=== PATIENT | female | born 1995 | race American Indian/Alaskan Native ===

== ENCOUNTER 2019-10-15 17:50 | Inpatient (IN) | payer MEDICAID ==
[~2019-10-15 17:50] MED LIST: AMPICILLIN/NS 2 GM/100 ML 2 GM/100 ML BAG IV ONE; LIDOCAINE (2%) 20 MG/1 ML VIAL 20 ML MDV INFILTRATI ONE; TERBUTALINE 1 MG/1 ML INJ SUB-Q PRN; ePHEDrine SULFATE 50 MG/1 ML INJ IV PRN; fentaNYL 100 MCG/2 ML INJ IV PRN
--- NOTE | 2019-10-15 17:54 | History and Physical Report ---
History of Present Illness Date of examination: 10/15/19 Date of admission: 10/15/2019 Chief complaint: Contractions History of present illness: 23 year old presents with complaint of contractions. Patient denies LOF or VB. Pt. reports active movement. Patient has received care at [facility]. records are not available. 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 labs are as follows: O negative, antibody sceen positive (weak anti-D), rubella immune, varicella nonimmune, hepatitis B surface antigen negative, RPR nonreactive, HIV negative, 1 hour sugar test 105, panorama low risk, horizon negative, hemoglobin electrophoresis negative, gonorrhea negative, chlamydia negative, GBS positive, pap negative. 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 denies: smoking, alcohol abuse, prescription drug abuse, IV drug use - Obstetrical History Expected Date of Delivery: 10/18/19 Actual Gestation: 39 Week(s) 4 Day(s) : 3 Para: 1 Hx # Term Pregnancies: 1 Number of Pregnancies: 0 Spontaneous Abortions: 0 Induced : 1 Number of Living Children: 1 Medications and Allergies Allergies Allergy/AdvReac Type Severity Reaction Status Date / Time No Known Allergies Allergy Unverified 10/15/19 16:39 Home Medications Medication Instructions Recorded Confirmed Last Taken Type Valacyclovir HCl [Valacyclovir] 500 mg PO DAILY 10/15/19 10/15/19 10/14/19 18:00 History Active Meds: Active Medications Ephedrine Sulfate (Ephedrine Sulfate) 10 mg IV Q2M PRN PRN Reason: Hypotension Fentanyl (Sublimaze) 100 mcg IV Q2H PRN PRN Reason: Pain,Severe (7-10) LABOR PAIN Oxytocin/Sodium Chloride (Pitocin/Ns 20 Unit/1000ml Drip) 20 units in 1,000 mls @ 125 mls/hr IV DIRECT EMMANUEL Lactated Ringer's (Lactated Ringers) 1,000 mls @ 125 mls/hr IV DIRECT EMMANUEL Ampicillin Sodium (Ampicillin/Ns 2 Gm/100 Ml) 2 gm in 100 mls @ 100 mls/hr IV ONCE ONE; Protocol Stop: 10/15/19 18:49 Ampicillin Sodium (Ampicillin/Ns 1 Gm/50 Ml) 1 gm in 50 mls @ 100 mls/hr IV Q4HR [facility]; Protocol Lidocaine (Xylocaine 2%) 20 ml INFILTRATI ONCE ONE Stop: 10/15/19 17:51 Terbutaline Sulfate (Brethine) 0.25 mg SUB-Q ONCE PRN PRN Reason: Hyperstimulation/Hypertonicity Review of Systems All systems: negative (contractions) - Vital Signs Vital signs: Vital Signs Pulse BP 88 107/64 10/15/19 16:15 10/15/19 16:15 Temp Pulse Resp BP Pulse Ox 98.3 F 104 H 15 124/69 99 10/15/19 16:18 10/15/19 17:51 10/15/19 16:18 10/15/19 17:31 10/15/19 17:51 - Physical Exam Abdomen: Positive: normal appearance, soft. Negative: distention, tenderness, guarding, rigidity Genitourinary (Female): Positive: normal external genitalia, normal perenium. Negative: perineal/vulvar lesions (no lesions noted on careful exam with bright light upon admission) Vagina: Positive: normal moisture Uterus: Positive: enlarged. Negative: tender Anus/Rectum: Positive: normal perianal skin Extremities: Positive: normal, edema (mild pedal edema bilaterally). Negative: tenderness - Obstetrical FHR: category 1 Uterine Contraction Monitor Mode: External Cervical Dilatation: 4 Cervical Effacement Percentage: 60 station: -2 Uterine Contraction Pattern: Irregular Uterine Contraction Intensity: Moderate Results Result Diagrams: 10/15/19 17:00 All other labs normal. Assessment and Plan A: at 39 weeks, 4 days Labor. GBS positive. P: Admit. EFM. GBS prophylaxis. Anticipate vaginal .
[2019-10-15] MEDS ORDERED: OXYTOCIN 20 UNIT/1000ML DRIP 20 UNITS/1,000 ML BAG IV SCH (18:00)
[2019-10-15] MEDS: LACTATED RINGERS 1,000 ML IV SCH (18:34)
[2019-10-15 19:03] LABS: Hematocrit 31.2 % (30.3-42.9); Hemoglobin 10.2 gm/dl (10.1-14.3); Mean Corpuscular HGB Conc 33 % (30-34); Mean Corpuscular Volume 91 fl (79-97); Platelet Count 184 K/mm3 (140-440); Red Blood Count 3.42 M/mm3 (3.65-5.03); Red Cell Distribution Width 14.6 % (13.2-15.2)
[2019-10-15] MEDS: valACYclovir 500 MG TAB PO SCH (19:26)
[2019-10-15] MEDS ORDERED: OXYTOCIN DRIP 30 UNITS/500 ML BAG IV SCH (22:00)
[2019-10-16] MEDS: LACTATED RINGERS 1,000 ML IV SCH ×3 (00:43→08:36)
[2019-10-16] MEDS ORDERED: NALOXONE 2 MG/2 ML INJ IV PRN (01:39)
--- NOTE | 2019-10-16 01:39 | Anesthesia Consultation ---
Anesthesia Consult and Med Hx Date of service: 10/16/19 - Airway Anesthetic Teeth Evaluation: Good ROM Head & Neck: Adequate Mental/Hyoid Distance: Adequate Mallampati Class: Class II Intubation Access Assessment: Probably Good - Pulmonary Exam CTA: Yes - Cardiac Exam Cardiac Exam: RRR - Pre-Operative Health Status ASA Pre-Surgery Classification: ASA2 Proposed Anesthetic Plan: Epidural - Pulmonary Hx Asthma: No - Cardiovascular System Hx Hypertension: No - Central Nervous System Hx Seizures: No Hx Psychiatric Problems: No - Endocrine Hx Renal Disease: No Hx Hypothyroidism: No Hx Hyperthyroidism: No - Hematic Hx Anemia: No Hx Sickle Cell Disease: No - Other Systems Hx Alcohol Use: No
[2019-10-16] MEDS ORDERED: DEXMEDETOMIDINE 200 MCG/2 ML VIAL IV ONE (01:42)
[2019-10-16] MEDS ORDERED: fentaNYL-BUPIV 2 MCG/ML-0.125% 200 MCG/100 ML BAG EPIDURAL SCH (02:00)
[2019-10-16] MEDS: ePHEDrine SULFATE 50 MG/1 ML INJ IV PRN ×2 (03:13→03:21)
[2019-10-16] MEDS: AMPICILLIN/NS 1 GM/50 ML 1 GM/50 ML BAG IV SCH ×2 (04:15→08:28)
[2019-10-16] MEDS ORDERED: ONDANSETRON 4 MG/2 ML INJ IV PRN (08:00)
[2019-10-16] MEDS: valACYclovir 500 MG TAB PO SCH (10:00)
[2019-10-16] MEDS ORDERED: WITCH HAZEL/ GLYCERIN PAD TP PRN (16:26)
[2019-10-16] MEDS ORDERED: LANOLIN/ZINC/DIMETHICONE (LANSINOH) 7 GM TP PRN (16:26)
--- NOTE | 2019-10-16 16:34 | Procedure Note ---
OB Delivery Note - Delivery Date of Delivery: 10/16/19 Surgeon: HERBIE GARCIA Estimated blood loss: 300cc - Vaginal Delivery presentation: vertex Delivery position: OA Intrapartum events: none Delivery augmentation: rupture of membranes, pitocin Delivery monitor: external FHT, external uterine Route of delivery: Delivery placenta: spontaneous Delivery cord: 3 umbilical vessels Episiotomy: none Delivery laceration: none Anesthesia: epidural Delivery comments: Spontaneous vaginal delivery at 13:59 of liveborn male infant weighing 3.124 kg with apgars of 7/9. Epidural anesthesia. Nuchal cord and body cord. Baby bulb suctioned and placed skin to skin with mom, dried and stimulated. Spontaneous cry and respirations. 3 vessel cord double clamped and cut. Spontaneous delivery of intact placenta and membranes. EBL 300 cc. Vaginal sweep negative. First degree skid zac on perineum, not bleeding and not sutured. Sponge count correct. Mother and baby stable.
[2019-10-16] MEDS: HYDROcodone/ACETAMINOPHEN 5-325 MG TAB PO PRN (19:35)
--- NOTE | 2019-10-16 20:53 | Post Anesthesia Evaluation ---
- Post Anesthesia Evaluation Patient Participated: Yes Airway Patent: Yes Stable Respiratory Function: Yes Nausea/Vomiting: No Temp > 96.8F: Yes Pain Manageable: Yes Adequeate Hydration: Yes Anesthesia Complications: No Block Receding Appropriately: Yes
[2019-10-16] MEDS: FERROUS SULFATE 325 MG TAB PO SCH (22:13)
[2019-10-16] MEDS: IBUPROFEN 600 MG TAB PO SCH (23:00)
[2019-10-17] MEDS: IBUPROFEN 600 MG TAB PO SCH ×4 (00:27→18:05)
[2019-10-17 07:26] LABS: Hematocrit 28.2 % (30.3-42.9); Hemoglobin 9.3 gm/dl (10.1-14.3)
[2019-10-17] MEDS: FERROUS SULFATE 325 MG TAB PO SCH ×2 (10:00→22:31)
[2019-10-17] MEDS: HYDROcodone/ACETAMINOPHEN 5-325 MG TAB PO PRN ×2 (10:00→20:42)
--- NOTE | 2019-10-17 13:41 | Progress Note ---
Assessment and Plan A: day 1 S/P . Anemia. P: Supplement with iron. Plan discharge home tomorrow when baby is able to go. Subjective - Subjective Date of service: 10/17/19 Principal diagnosis: day 1 S/P Interval history: day 1 S/P . Doing well. Baby is not getting to go until tomorrow so will plan to discharge patient tomorrow morning. Patient reports: appetite normal, voiding normally, pain well controlled, flatus, ambulating normally, no dizzy ambulation, no nauseated [place]: doing well Objective - Vital Signs Latest vital signs: Vital Signs Temp Pulse Resp BP BP Pulse Ox 10/17/19 09:10 98 F 89 20 102/63 10/17/19 05:44 18 10/17/19 04:00 98.6 F 74 102/63 10/17/19 00:27 18 10/17/19 00:00 98.6 F 69 18 107/78 10/16/19 19:35 18 10/16/19 19:30 98.7 F 66 18 106/72 10/16/19 17:15 99.2 F 66 20 110/70 10/16/19 16:01 79 100 10/16/19 15:56 93 H 100 10/16/19 15:55 90 110/74 10/16/19 15:51 80 100 10/16/19 15:46 94 H 100 10/16/19 15:41 93 H 100 10/16/19 15:40 89 120/67 10/16/19 15:36 89 100 10/16/19 15:31 95 H 100 10/16/19 15:26 96 H 100 10/16/19 15:25 97 H 122/67 10/16/19 15:21 101 H 100 10/16/19 15:16 88 100 10/16/19 15:11 87 122/63 100 10/16/19 15:06 90 100 10/16/19 15:01 85 100 10/16/19 14:56 93 H 106/65 100 10/16/19 14:51 89 100 10/16/19 14:46 85 100 10/16/19 14:41 83 100 10/16/19 14:40 86 112/64 10/16/19 14:36 91 H 100 10/16/19 14:31 91 H 100 10/16/19 14:26 97 H 114/62 100 10/16/19 14:21 93 H 100 10/16/19 14:16 90 100 10/16/19 14:11 89 119/70 100 10/16/19 14:06 95 H 100 10/16/19 14:01 83 100 10/16/19 13:57 93 H 131/62 10/16/19 13:56 84 100 10/16/19 13:51 99 H 100 10/16/19 13:46 105 H 100 10/16/19 13:42 84 121/53 10/16/19 13:40 87 100 Intake and Output 10/16/19 10/17/19 10/17/19 23:59 07:59 15:59 Intake Total 300 200 120 Output Total 550 Balance -250 200 120 Intake: Oral 200 120 Intake, Free Water 300 Output: Urine 550 Void 550 Other: Total, Intake Amount 200 120 Total, Output Amount 550 # Voids Void 1 1 1 - Exam Cardiovascular: Present: Regular rate, Normal S1, Normal S2, No murmurs Lungs: Present: Clear to auscultation Abdomen: Present: normal appearance, soft. Absent: distention, tenderness, guarding, rigidity Uterus: Present: normal, firm, fundal height below umbilicus. Absent: bogginess, tenderness Extremities: Present: normal. Absent: tenderness, edema - Labs Labs: Abnormal lab results 10/17/19 Range/Units 06:10 Hgb 9.3 L (10.1-14.3) gm/dl Hct 28.2 L (30.3-42.9) %
[2019-10-18] MEDS: HYDROcodone/ACETAMINOPHEN 5-325 MG TAB PO PRN ×2 (03:38→10:11)
[2019-10-18] MEDS: IBUPROFEN 600 MG TAB PO SCH ×2 (05:40→11:36)
[2019-10-18] MEDS ORDERED: DIPHtheria,PERTUSSIS(ACELL),TETANUS VACCINE/PF 0.5 ML VIAL IM ONE (06:00)
[2019-10-18] MEDS: FERROUS SULFATE 325 MG TAB PO SCH (10:11)
--- NOTE | 2019-10-18 11:16 | Progress Note ---
Assessment and Plan - Patient Problems (1) Status post normal vaginal delivery Current Visit: Yes Status: Acute Plan to address problem: PPD 2 - stable Continue routine orders Discharge to home later today Follow-up at [facility] as needed or in 6 weeks for exam (2) Single live Current Visit: Yes Status: Acute (3) Anemia due to blood loss, acute Current Visit: Yes Status: Acute Plan to address problem: Asymptomatic Continue iron therapy (4) Rh negative status during in third trimester Current Visit: Yes Status: Acute Plan to address problem: Rhogam given Subjective - Subjective Date of service: 10/18/19 Principal diagnosis: PPD #2; s/p Interval history: see [facility] - H&P, OB Delivery Procedure Note and PP/[facility] Progress Note Patient reports: appetite normal, voiding normally, pain well controlled, ambulating normally, no dizzy ambulation [place]: doing well Objective - Vital Signs Latest vital signs: Vital Signs Temp Pulse Resp BP Pulse Ox 10/18/19 09:12 98.0 F 76 18 116/54 100 10/18/19 00:30 98.2 F 108 H 17 139/88 96 10/17/19 16:30 98 F 90 20 113/68 Intake and Output 10/17/19 10/18/19 10/18/19 23:59 07:59 15:59 Intake Total 320 400 120 Balance 320 400 120 Intake: Oral 320 400 120 Other: Total, Intake Amount 320 200 120 # Voids Void 1 1 - Exam Cardiovascular: Present: Regular rate Lungs: Present: Clear to auscultation Abdomen: Present: normal appearance, soft Vulva: both: normal Uterus: Present: normal, firm, fundal height below umbilicus Extremities: Present: normal Comments: scant lochia
--- NOTE | 2019-10-18 11:18 | Discharge Summary ---
Providers - Providers Date of Admission: 10/16/19 14:56 Date of discharge: 10/18/19 Attending physician: ANDRES HAYS MD Primary care physician: ANDRES HAYS MD Hospitalization Reason for admission: active labor, IUP at term Delivery: Episiotomy: none Laceration: none Other procedures: none complications: none Discharge diagnosis: IUP at term delivered [place] baby: male Hospital course: Uncomplicated Condition at discharge: Stable Disposition: DC-01 TO HOME OR SELFCARE - Discharge Diagnoses (1) Status post normal vaginal delivery Status: Acute (2) Single live Status: Acute (3) Anemia due to blood loss, acute Status: Acute Comment: Asymptomatic Continue iron therapy Eat iron-rich foods (4) Rh negative status during in third trimester Status: Acute Comment: Rhogam given Plan - Provider Discharge Summary Activity: routine, no sex for 6 weeks, no heavy lifting 4 weeks, no strenuous exercise Diet: routine Instructions: routine Additional instructions: [] Smoking cessation referral if applicable(refer to patient education folder for contact #) [] Refer to [facility] Booklet Call your doctor immediately for: * Fever > 100.5 * Heavy vaginal bleeding ( >1 pad per hour) * Severe persistent headache * Shortness of breath * Reddened, hot, painful area to leg or breast * Drainage or odor from incision. * Keep incision clean and dry at all times and follow doctor's instructions regarding bathing/showering - Follow up plan Follow up: ANDRES HAYS MD [Primary Care Provider] - 6 Weeks (Follow-up at [facility] as needed or in 6 weeks for exam)
[2019-10-19 11:36] VITALS: BP 101/69
== END 2019-10-18 17:35 | disposition home or self-care (01) | DRG 775 ==
LOC: LD 17:50 → TRG 17:50 → APU 17:50 → TRG 10-16 14:55 → LD 10-16 14:56 → OB 10-16 17:43
PROVIDERS: ADMIT Obstetrics & Gynecology; ATTEND Obstetrics & Gynecology
PROC: 10E0XZZ Delivery of Products of Conception, External Approach (ICD-10-PCS; principal; 2019-10-16)
PROC: 3E0R3BZ Introduction of Anesthetic Agent into Spinal Canal, Percutaneous Approach (ICD-10-PCS; 2019-10-16)
PROC: 00HU33Z Insertion of Infusion Device into Spinal Canal, Percutaneous Approach (ICD-10-PCS; 2019-10-16)
PROC: 3E0234Z Introduction of Serum, Toxoid and Vaccine into Muscle, Percutaneous Approach (ICD-10-PCS; 2019-10-17)
DX: O99.824 Streptococcus B carrier state complicating childbirth (principal); Z3A.39 39 weeks gestation of pregnancy; Z37.0 Single live birth; O90.81 Anemia of the puerperium; D62 Acute posthemorrhagic anemia; Z23 Encounter for immunization
CPT/HCPCS: 36415; 85014; 85018; 85027; 85461; 86592; 86850; 86870; 86900; 86901; 90715; G0378; A6250; J0290; J2405; J2790; J3490; J7120